=== PATIENT | male | born 1995 | race Two or more races ===

== ENCOUNTER 2024-10-23 20:31 | Emergency (ER) | payer OTHER ==
[~2024-10-23] VITALS: Ht 177.8 cm; Wt 109.3 kg
[2024-10-23] MEDS ORDERED: EMTRICITABINE/TENOFOV ALAFENAM 1 EACH TABLET PO STA (22:00)
[2024-10-23] MEDS ORDERED: ELVITEG/COB/EMTRI/TENOFO DISOP 1 UDTAB TABLET PO ONE (22:41)
== END 2024-10-23 23:04 | disposition home or self-care (01) ==
LOC: ER 20:34
DX: Z72.51 High risk heterosexual behavior (principal)